=== PATIENT | male | born 1985 | race Asian ===

== ENCOUNTER → 2016-06-22 | Outpatient (CLI) | payer OTHER ==
[~2016-06-22] MED LIST: CONRAY-43 43% 50ML VIAL (Q9960) As Ordered ONE
--- NOTE | 2016-06-22 09:53 | REP ---
MR arthrography right shoulder: with pre and post intra-articular gadolinium enhanced saline injected imaging: History: Right shoulder pain radiating to the right hand. Imaging projections. Patient was unable to tolerate positioning for the ABER projection sequence. Technique: The injection procedure is performed and dictated separately. Pre and post intra-articular gadolinium enhanced saline injected imaging is acquired. Imaging planes include axial, oblique coronal, oblique sagittal imaging projections. The patient was unable to tolerate positioning for the ABER projection sequence. T1 T2-weighted scans are included with and without fat saturation. MRI findings: Pre injection MR imaging shows normal alignment of the glenohumeral and acromioclavicular joints. There is minimal hypertrophy at the AC joint and there is some mild inferolateral acromion process spur formation. There is a small subacromial subdeltoid bursal fluid sliver on pre-injection T2. There is diffuse increased signal intensity and swelling in a heterogeneous pattern in the distal supraspinatus tendon consistent with advanced tendonitis tendinosis change. There is focal intra-substance T2 hyperintensity on oblique coronal T2-weighted scans consistent with a partial thickness intra-substance tear. No other definite abnormality on pre-injection scanning. Some marrow edema is seen on either side of the AC joint. Post injection imaging shows good filling and enhancement of the right glenohumeral articulation. The anterior and posterior labrum appears intact. The infraspinatus, subscapularis, and biceps tendons have an intact appearance. Postinjection T1-weighted fat sat images demonstrate contrast enhancement extending through the supraspinatus tendon at approximately 12 o'clock on the humeral head in this oblique coronal projection consistent with a full-thickness supraspinatus cuff tear. No retraction seen. No loose body is observed. No articular cartilage injury is seen. Impression: Minimal AC joint hypertrophy and acromion process spurring. Advanced diffuse tendinosis in the supraspinatus with a focal full-thickness supraspinatus cuff tear seen on postinjection imaging. Signed by Fredrick Wooten MD 06/22/2016 01:42 P
--- NOTE | 2016-06-22 13:53 | REP ---
Procedure: Right shoulder arthrogram The procedure was performed under the direct supervision of Dr. Wooten. History: Right shoulder pain. The benefits and risks including but not limited to pain, infection, bleeding and anaphylaxis were explained to the patient and informed consent was obtained. Technique: The right glenohumeral joint space was localized using fluoroscopic guidance. The skin was prepped and draped in a sterile fashion. 1% lidocaine was used as a local anesthetic. Using fluoroscopic guidance a 22 gauge spinal needle was inserted and advanced into the joint. 0.5 ml of Conray 43 was injected to verify placement. 11 ml of a solution containing 20 ml of sterile saline and 0.15 ml of ProHance was injected into the joint. The needle was removed and the patient was taken to MRI for postprocedural imaging. The the patient tolerated the procedure well and there were no immediate complications. 1 second of fluoro time was utilized for this procedure. Reviewed by LAURA Dumont 06/22/2016 09:45 ASigned by Fredrick Wooten MD 06/22/2016 01:44 P
== END | disposition home or self-care (01) ==
LOC: M RADPRO 07:32
DX: M19.011 Primary osteoarthritis, right shoulder (principal); M25.711 Osteophyte, right shoulder; M75.81 Other shoulder lesions, right shoulder; M75.101 Unspecified rotator cuff tear or rupture of right shoulder, not specified as traumatic
CPT/HCPCS: 23350; 73040; 73223; A9576; Q9960

== ENCOUNTER 2016-08-23 17:09 | Emergency (ER) | payer OTHER ==
[~2016-08-23] VITALS: Ht 167.6 cm; Wt 64.9 kg
[2016-08-23] MEDS ORDERED: TUMS500C PO (17:19)
[2016-08-23] MEDS ORDERED: NAPR500T2 PO (17:19)
[2016-08-23] MEDS ORDERED: PANTOPRAZOLE 40MG INJ (PROTONIX) (C9113) IV ONE (20:45)
[2016-08-23] MEDS ORDERED: NS 1,000 ML IV ONE (20:45)
[2016-08-23] MEDS ORDERED: ONDANSETRON 4MG/2ML VIAL (J2405) IV ONE (20:45)
[2016-08-23 21:19] LABS: BASO % 0.6 % (0.0-1.0); EOS # 0.2 K/mm3 (0.0-0.50); EOS % 2.4 % (0.0-3.0); LARGE UNSTAINED CELL # 0.2 K/mm3 (0.0-0.4); LARGE UNSTAINED CELL % 2.3 % (0.0-4.0); LYMPH # 2.9 K/mm3 (1.5-4.5); LYMPH % 39.8 % (24.0-44.0); MEAN CORPUSCULAR HEMOGLOBIN 30.2 pg (27.0-33.0); MEAN CORPUSCULAR HGB CONC 33.5 g/dl (32.0-36.5); MEAN CORPUSCULAR VOLUME 90.1 fl (80.0-96.0); MONO # 0.4 K/mm3 (0.0-0.8); MONO % 6.1 % (0.0-5.0); NEUTROPHILS # 3.4 K/mm3 (1.8-7.7); NEUTROPHILS % 48.9 % (36.0-66.0); PLATELET COUNT, AUTOMATED 246 k/mm3 (150-450); RED CELL DISTRIBUTION WIDTH 12.5 % (11.5-14.5); WHITE BLOOD COUNT 6.9 K/mm3 (4.0-10.0)
[2016-08-23 21:39] LABS: ALBUMIN 4.7 GM/DL (3.2-5.2); ALBUMIN/GLOBULIN RATIO 1.27 (1.00-1.93); ALKALINE PHOSPHATASE 71 U/L (45-117); ALT/SGPT 24 U/L (12-78); AMYLASE 93 U/L (25-115); ANION GAP 6 MEQ/L (8-16); AST/SGOT 20 U/L (15-37); BILIRUBIN,DIRECT 0.1 MG/DL (0.0-0.2); BILIRUBIN,TOTAL 0.6 MG/DL (0.2-1.0); BLOOD UREA NITROGEN 19 MG/DL (7-18); CALCIUM LEVEL 9.2 MG/DL (8.5-10.1); CARBON DIOXIDE LEVEL 30 MEQ/L (21-32); CHLORIDE LEVEL 102 MEQ/L (98-107); CREATININE FOR GFR 0.94 MG/DL (0.70-1.30); GLOMERULAR FILTRATION RATE > 60.0 (>60); GLUCOSE, FASTING 93 MG/DL (70-105); POTASSIUM SERUM 4.1 MEQ/L (3.5-5.1); SODIUM LEVEL 138 MEQ/L (136-145); TOTAL PROTEIN 8.4 GM/DL (6.4-8.2)
--- NOTE | 2016-08-23 22:00 | REPUSA ---
CLINICAL HISTORY: Abdominal pain. TECHNIQUE: Realtime sonographic images were obtained in multiple projections. COMMENTS: The liver is of normal size, parenchyma demonstrates normal echogenicity. No discrete hepatic mass is seen. There is no intra or extrahepatic biliary ductal dilatation. CBD measures 3 mm. The gallbladder is ph ysiologically distended and contains multiple small calculi. The gallbladder wall is not thickened an d there is no pericholecystic fluid. There is no abdominal ascites. The right kidney measures 11.3 cm, free of hydronephrosis. IMPRESSION: Cholelithiasis. Otherwise unremarkable study. Thank you for your kind referral of this patient.
[2016-08-24] MEDS ORDERED: PRIL20CA9 PO (00:05)
[2016-08-24] MEDS ORDERED: ZOFR4TAB3 PO (00:05)
[2016-08-24 00:22] VITALS: BP 123/76
== END 2016-08-24 00:30 | disposition home or self-care (01) ==
LOC: M ED 18:17
DX: K80.20 Calculus of gallbladder without cholecystitis without obstruction (principal); Z79.899 Other long term (current) drug therapy
CPT/HCPCS: 36415; 76705; 80048; 80076; 81001; 82150; 83690; 85025; 96361; 96374; 96375; 99283; C9113; J2405